=== PATIENT | male | born 1990 | race Caucasian/White ===

== ENCOUNTER → 2024-10-22 09:50 | Outpatient (CLI) | payer OTHER, SELFPAY ==
--- NOTE | 2024-10-22 09:54 | DI.MRI.S_ITS ---
PROCEDURE: MR SHOULDER LT WO CON INDICATIONS: DISLOCATION OF LEFT SHOULDER JOINT TECHNIQUE: Noncontrast oblique coronal T2 fast spin echo with fat saturation, oblique sagittal T1 spin echo and T2 fast spin echo with fat saturation, axial T1 spin echo and T2 fast spin echo with fat saturation through the shoulder. COMPARISON: None. FINDINGS: Image quality: Diagnostic Rotator cuff: Bulk: No significant atrophy Teres minor: Intact Supraspinatus: Mild tendinopathy. No significant tear Infraspinatus: Intact Subscapularis: Mild diffuse thickening and tendinopathy Bones and bursae: GH joint: Mild joint effusion AC joint: Zeiy-of-kowdvshh arthrosis Humeral head: There is focal contusion of the posterior humeral head with a small Hill-Sachs deformity Scapula and acromion: Intact Bursa: Mild bursitis Capsule: Labrum: Superior labral tear extending to the posterior labrum is present (04/10). This is in close proximity to the biceps anchor. In addition, there is anterior inferior labral defect with slight osseous impaction. Long head biceps tendon: Intact. Fluid extends to the bicipital groove IGHL: Intact Rotator interval: There is edema in the rotator interval. Soft tissues: No axillary adenopathy. Lungs are not well seen. IMPRESSION: Hill-Sachs impaction fracture. Moderate associated humeral head edema. Anterior inferior glenoid Bankart lesion, with labral involvement and subtle impaction of the underlying bone. Suspected nondisplaced superior labral tear is also present, extending to the posterior aspect, in close proximity to the biceps anchor. No significant rotator cuff pathology. There is mild supraspinatus and subscapularis thickening and tendinopathy. Mild glenohumeral joint effusion. [id number] acromioclavicular arthrosis. Edema in the rotator interval could represent reactive edema versus capsulitis. Dictated by: Dwayne Kaur M.D. on 10/24/2024 at 10:00 Approved by: Dwayne Kaur M.D. on 10/24/2024 at 10:06
== END ==
LOC: MRI 09:53
DX: S42.292A Other displaced fracture of upper end of left humerus, initial encounter for closed fracture (principal); M25.412 Effusion, left shoulder; M19.012 Primary osteoarthritis, left shoulder; X58.XXXA Exposure to other specified factors, initial encounter
CPT/HCPCS: 73221